=== PATIENT | male | born 2000 ===

== ENCOUNTER 2019-12-27 10:43 | Outpatient (CLI) | payer OTHER, SELFPAY ==
--- NOTE | ~2019-12-27 | XR_ITS ---
EXAMINATION: XR abdomen/kub 1V INDICATION: Unspecified abdominal pain TECHNIQUE: Supine views of the abdomen were obtained on 2 radiographs. COMPARISON: None FINDINGS: The bowel gas pattern is normal. No dilated loops of bowel are seen. There is a moderate vo lume of colonic stool. The visualized osseous structures are unremarkable. IMPRESSION: 1. Moderate volume of colonic stool. Reviewed, dictated and finalized at location B.
== END 2019-12-27 10:44 | disposition home or self-care (01) ==
PROVIDERS: PCP Family Medicine; Visit Provider Physician Assistant
DX: K59.00 Constipation, unspecified (principal); R10.9 Unspecified abdominal pain
CPT/HCPCS: 74018